=== PATIENT | male | born 1990 | race Caucasian/White ===

== ENCOUNTER 2020-12-13 04:56 | Inpatient (IN) ==
[2020-12-13] MEDS ORDERED: ONDANSETRON 4 MG/2 ML VIAL IV STA (05:14)
[2020-12-13] MEDS ORDERED: HYDROmorphone 2 MG/1 ML VIAL IV ONE (05:14)
[2020-12-13 05:33] LABS: Basophils % 0.3 % (0.0-0.8); Eosinophils % 0.2 % (0.00-10.9); Hematocrit 42.4 VOL% (42.0-52.0); Hemoglobin 13.8 GM/DL (14.0-18.0); Immature Granulocytes % 0.4 %; Immature Granulocytes Absolute 0.05 #; Lymphocytes # 2.6 10*3/uL (1.4-4.0); Lymphocytes % 20.3 % (21.2-54.2); Mean Corpuscular HGB Conc 32.5 GM/DL (32-36); Mean Corpuscular Volume 92.4 FL (87-102); Mean Platelet Volume 10.8 FL (9.6-12.0); Monocytes % 9.6 % (1.7-12.7); Neutrophils % 69.2 % (38.7-73.9); Platelet Count 208 T/CUMM (130-400); Red Blood Count 4.59 MC/CUMM (3.8-5.5); Red Cell Distribution Width 12.7 % (9.3-17.3); White Blood Count 12.7 T/CUMM (4-12)
[2020-12-13] MEDS ORDERED: HYDROmorphone 2 MG/1 ML VIAL IV PRN ×2 (05:53→10:52)
[2020-12-13] MEDS ORDERED: ACETAMINOPHEN 325 MG TABLET PO PRN (05:53)
[2020-12-13] MEDS ORDERED: ONDANSETRON 4 MG/2 ML VIAL IV PRN ×2 (05:53→10:52)
[2020-12-13 06:08] LABS: Albumin 3.7 G/DL (3.4-5.0); Bilirubin,Total 1.7 MG/DL (0.20-1.00); Osmolality,Calculated 281.3 MOS/KG (273-304); Potassium 3.6 MMOL/L (3.5-5.1); Total Protein 7.1 G/DL (6.4-8.2)
[2020-12-13] MEDS: SODIUM CHLORIDE 0.9% 1,000 ML IV SCH ×2 (06:45→14:53)
[2020-12-13] MEDS ORDERED: PIPERACILLIN/TAZOBACTAM 3,375 MG in SODIUM CHLORIDE 0.9% 100 ML IV SCH (08:00)
[2020-12-13] MEDS ORDERED: TISSUE ADHESIVE 1 EACH APPLICATOR TOP ONE (08:03)
[2020-12-13] MEDS ORDERED: fentaNYL 100 MCG/2 ML VIAL ONE ×2 (08:26→09:53)
[2020-12-13] MEDS ORDERED: propofoL 200 MG/20 ML VIAL IV ONE (08:26)
[2020-12-13] MEDS ORDERED: ONDANSETRON 4 MG/2 ML VIAL ONE (08:26)
[2020-12-13] MEDS ORDERED: LIDOCAINE 2% 5 ML VIAL ONE (08:26)
[2020-12-13] MEDS ORDERED: MIDAZOLAM 2 MG/2 ML VIAL ONE (08:26)
[2020-12-13] MEDS ORDERED: ROCURONIUM 50 MG/5 ML VIAL IV ONE ×2 (08:26→09:59)
[2020-12-13] MEDS ORDERED: PANTOPRAZOLE 40 MG VIAL IV SCH (09:00)
[2020-12-13] MEDS ORDERED: GLYCOPYRROLATE 0.4 MG/2 ML VIAL ONE ×3 (09:58→10:15)
[2020-12-13] MEDS ORDERED: SEVOFLURANE 1 UNIT/15 MINUTE INH ONE (09:58)
[2020-12-13] MEDS ORDERED: ceFAZolin 1,000 MG VIAL ONE (09:58)
[2020-12-13] MEDS ORDERED: KETOROLAC 30 MG/1 ML VIAL ONE (09:58)
[2020-12-13] MEDS ORDERED: PHENYLEPHRINE 1 MG/10 ML SYRINGE IV ONE (09:58)
[2020-12-13] MEDS ORDERED: NEOSTIGMINE 10 MG/10 ML VIAL ONE (10:03)
[2020-12-13] MEDS ORDERED: LACTATED RINGERS 1,000 ML IV ONE (10:08)
[2020-12-13] MEDS ORDERED: MEPERIDINE 25 MG/1 ML VIAL ONE (10:40)
[2020-12-13] MEDS ORDERED: MEPERIDINE 25 MG/1 ML VIAL IV PRN (10:52)
[2020-12-13] MEDS ORDERED: PHENOL 1.4% THROAT SPRAY 177 ML BOTTLE PO PRN (14:50)
[2020-12-13 16:31] VITALS: BP 126/74
== END 2020-12-13 17:16 | disposition home or self-care (01) | DRG 343 ==
LOC: N.ED 04:56 → N.EDINP 05:11 → N.3E 05:49
PROVIDERS: ADMIT Student in an Organized Health Care Education/Training Program; ATTEND Student in an Organized Health Care Education/Training Program